=== PATIENT | female | born 1950 | race Caucasian/White ===

== ENCOUNTER 2018-07-18 12:40 | Day surgery (SDC) | payer OTHER ==
[~2018-07-18] VITALS: Ht 165.1 cm; Wt 94.2 kg
[~2018-07-18 12:40] MED LIST: CLINGEL; Diclofenac Pota50 MG; HYDACE5 PO; LEVSOD50; SIMV10; SPIHYD; VENL75ER
[2018-07-18] MEDS ORDERED: DESV50 PO (13:06)
[2018-07-18] MEDS ORDERED: LAMO100 PO (13:07)
== END 2018-07-18 14:27 | disposition home or self-care (01) ==
LOC: ORSCSDS 12:40
PROVIDERS: Internal Medicine Gastroenterology
PROC: 0DJD8ZZ Inspection of Lower Intestinal Tract, Via Natural or Artificial Opening Endoscopic (ICD-10-PCS; principal; 2018-07-18 14:30)
DX: Z12.11 Encounter for screening for malignant neoplasm of colon (principal); K57.30 Diverticulosis of large intestine without perforation or abscess without bleeding; K64.1 Second degree hemorrhoids; Z80.0 Family history of malignant neoplasm of digestive organs; I10 Essential (primary) hypertension; E03.9 Hypothyroidism, unspecified; E78.5 Hyperlipidemia, unspecified; F32.9 Major depressive disorder, single episode, unspecified; G47.33 Obstructive sleep apnea (adult) (pediatric); Z79.899 Other long term (current) drug therapy
CPT/HCPCS: J7120

== ENCOUNTER → 2018-08-23 | Outpatient (CLI) | payer OTHER ==
[~2018-08-23] MED LIST changes: +DESV50 PO; +LAMO100 PO
[2018-08-23 15:01] LABS: CHOL/HDL RATIO 3.9; Cholesterol 231 mg/dL (50-200); Free Thyroxine 1.08 ng/dL (0.70-1.60); HDL Cholesterol 59 mg/dL (>39); LDL/HDL RATIO 2.5; Low Density Lipoprotein Chol 149 mg/dL (0-110); Triglycerides 113 mg/dL (30-160); Very Low Density Lipoprot Chol 22 mg/dL (6-32)
[2018-08-24 11:08] LABS: Antinuclear Antibody Screen Negative (Negative)
== END | disposition home or self-care (01) ==
LOC: LAB 14:23 → LAB SHORT 14:23
PROVIDERS: Hospitalist
DX: E03.9 Hypothyroidism, unspecified (principal); E78.5 Hyperlipidemia, unspecified; M19.071 Primary osteoarthritis, right ankle and foot; R76.11 Nonspecific reaction to tuberculin skin test without active tuberculosis
CPT/HCPCS: 80061; 84439; 84443; 85651; 86038; 86430

== ENCOUNTER → 2023-04-25 | Outpatient (CLI) | payer OTHER ==
[~2023-04-25] MED LIST changes: +NYSTOP15 GM TOP; +SYNTHROID50 MC1 PO; +Simvastatin20 MG PO
[2023-04-27 10:46] LABS: Stool Occult Bld Immuno 1 Negative (NEGATIVE)
== END ==
LOC: LAB 12:30 → LAB SHORT 12:30
PROVIDERS: Registered Nurse
DX: Z12.11 Encounter for screening for malignant neoplasm of colon (principal); Z12.12 Encounter for screening for malignant neoplasm of rectum
CPT/HCPCS: G0328

== ENCOUNTER 2023-06-15 09:32 | Day surgery (SDC) | payer OTHER ==
[~2023-06-15] VITALS: Ht 152.4 cm; Wt 96.9 kg
[2023-06-15] VITALS (10 sets, daily range): BP systolic 112–139; BP diastolic 57–87
[~2023-06-15 09:32] MED LIST changes: +Acetaminophen650 M1 PO; +CLEOCIN T60 G1 TOP; -CLINGEL
--- NOTE | 2023-06-15 19:25 | NUR ---
SHIFT SUMMARY POD0 LTKA. AQUACEL AND MARTA WRAP IN PLACE WITH POLAR [place]. SPINAL DURING SURGERY PATIENT STILL NOT UP TO WALK. HAD ONE INCONT. VOID AND WAS CLEANED UP. PATIENT TOLERATES PAIN MEDS. CALLS APPROPRIATELY. AOX4. VSS.
[2023-06-16 00:17] VITALS: BP 127/84
[2023-06-16 04:58] VITALS: BP 132/80
[2023-06-16 05:04] LABS: BASOPHILS ABSOLUTE AUTO 0.01 K/mm3 (0.00-0.23); BASOPHILS PERCENT AUTO 0 % (0-2); EOSINOPHILS PERCENT AUTO 0 % (0-6); Hematocrit 34.6 % (33.0-51.0); Hemoglobin 11.2 g/dL (11.5-16.0); IMMATURE GRAN ABSOLUTE AUTO 0.03 K/mm3 (0.00-0.10); IMMATURE GRAN PERCENT AUTO 0 % (0-1); LYMPHOCYTES ABSOLUTE AUTO 0.86 K/mm3 (0.84-5.20); LYMPHOCYTES PERCENT AUTO 7 % (21-46); MONOCYTES ABSOLUTE AUTO 0.95 K/mm3 (0.16-1.47); MONOCYTES PERCENT AUTO 8 % (4-13); Mean Corpuscular HGB 29.1 pg (26.0-34.0); Mean Corpuscular HGB Conc 32.4 g/dL (31.5-36.5); Mean Corpuscular Volume 90 fL (80-100); Mean Platelet Volume 9.4 fL (9.1-12.4); NEUTROPHILS ABSOLUTE AUTO 10.02 K/mm3 (1.96-9.15); NEUTROPHILS PERCENT AUTO 84 % (41-73); Platelet Count 228 K/mm3 (150-400); RDW Coefficient Variation 12.5 % (11.7-14.2); RDW Standard Deviation 40.9 fL (35.1-46.3); Red Blood Cell Count 3.85 M/mm3 (3.80-5.20); White Blood Cell Count 11.87 K/mm3 (4.00-11.30)
[2023-06-16 05:39] LABS: Bun/Creatinine Ratio 33.5 (12.0-20.0); Calcium, Blood 9.5 mg/dL (8.5-10.1); Creatinine, Blood 0.99 mg/dL (0.40-1.00); Magnesium, Blood 2.4 mg/dL (1.6-2.4); Potassium, Blood 4.8 mmol/L (3.5-5.5)
[2023-06-16 07:09] VITALS: BP 106/92
[2023-06-16 07:10] VITALS: BP 131/79
--- NOTE | 2023-06-16 07:35 | NUR ---
SHIFT SUMMARY NOC. PT A/O X4. PT'S LEFT KNEE AQUACEL IS C/D/I. PT AMBULATED TO THE BR, IS VOIDING, AND TOLERATING PO INTAKE.PT MEDICATED FOR PAIN WITH RELIEF OF SX. PT RESTED WITH EYES CLOSED, CPAP ON AND CALL LIGHT IN REACH.
[2023-06-16] MEDS ORDERED: ASPI81CH PO (08:55)
[2023-06-16] MEDS ORDERED: Percocet 5-3251 EACH PO (08:55)
--- NOTE | 2023-06-16 12:18 | NUR ---
DISCHARGE NOTE: PATIENT AND PATIENTS SON WERE EDUCATED ON DISCHARGE INSTRUCTIONS. SON HAS THE HARD PERSCRIPTIONS. AFTER EDUCATION BOTH THE SON AND PATIENT HAD NO FURTHER QUESTIONS AT THIS TIME. IV WAS TAKEN OUT AND WNL. PAIN IS MANAGED WITH PO MEDS. HER LEFT KNEE HAS AN AQUACEL THAT IS C/D/I. PATIENT DENIES NUMBNESS OR TINGLING ON ALL EXTREMITIES. SHE IS A SBA WITH FWW AND GAIT BELT. SHE IS TOLERATING PO INTAKE AND IS VOIDING. PATIENT IS DRESSED AND HAS ALL PERSONAL ITEMS IN THE ROOM GATHERED. PATIENT IS FINISHING UP LUNCH AND THEN IS BEING WHEELCHAIRED OUT WHEN READY TO HER SONS CAR TO BE TAKEN HOME.
--- NOTE | 2023-06-16 12:44 | NUR ---
PATIENT WAS JUST WHEELCHAIRED OUT TO HER SONS CAR TO BE TAKEN HOME. SHE HAS ALL OF HER PERSONAL BELONGINGS WITH HER.
== END 2023-06-16 12:44 | disposition home or self-care (01) ==
LOC: SURS 09:32 → ORSCMMR 09:32 → ORD 10:00 → ORSCMMR 11:00 → ORD 11:00 → SURS 15:41 → ORSCMMR 06-16 12:44
PROVIDERS: Orthopaedic Surgery
PROC: 0SRD0JA Replacement of Left Knee Joint with Synthetic Substitute, Uncemented, Open Approach (ICD-10-PCS; principal; 2023-06-15 11:00)
DX: M17.12 Unilateral primary osteoarthritis, left knee (principal); E66.01 Morbid (severe) obesity due to excess calories; Z68.41 Body mass index [BMI] 40.0-44.9, adult; E78.5 Hyperlipidemia, unspecified; G47.33 Obstructive sleep apnea (adult) (pediatric); F41.8 Other specified anxiety disorders; E03.9 Hypothyroidism, unspecified; Z79.899 Other long term (current) drug therapy
CPT/HCPCS: 36415; 73560-LT; 80048; 83735; 85025; 97116; 97161; 97530; A9270; C1713; C1776; J0171; J0690; J0735; J1100; J1885; J2371; J2405; J2704; J2795; J3010; J7120

== ENCOUNTER 2025-05-04 10:50 | Day surgery (SDC) | payer OTHER ==
[~2025-05-04] VITALS: Ht 152.4 cm; Wt 91.3 kg
[~2025-05-04 10:50] MED LIST changes: +ASPI81CH PO; +Bupivacaine 0.5% W/EPI 1:200000 SDV 30 ML Vial ONE; +Percocet 5-3251 EACH PO
[2025-05-04] MEDS ORDERED: CeFAZolin Sodium 2,000 MG VIAL ONE (11:11)
--- NOTE | 2025-05-04 13:19 | NUR ---
05/04/25 3727 Joann Bergeron PT APPEARED TO BE SLEEPING UPON ENTERING ROOM. LIGHT SNORING HEARD. AROUSES EASILY. BED ADJUSTED FOR COMFORT. DENIES ANY NEEDS AT THIS TIME. DENIES NEED FOR ANOTHER BLANKET AT THIS TIME. CALL LIGHT REMAINS IN REACH.
[2025-05-04] MEDS ORDERED: Ropivacaine 0.5% HCL/PF 5 MG/ML 30ML Vial ONE (13:50)
[2025-05-04] MEDS ORDERED: Midazolam HCl 1MG / ML 2ML Vial ONE ×2 (13:51→16:18)
[2025-05-04] MEDS ORDERED: FentaNYL Citrate 50 MCG/ML 2 ML Injection ONE ×2 (14:02→15:59)
[2025-05-04] MEDS ORDERED: Rocuronium Bromide 10 MG/ML 5ML Injection IV ONE (14:03)
[2025-05-04] MEDS ORDERED: Phenylephrine HCl 100 MCG/ML-NS 10MLSYR (1MG/10ML) ONE (14:13)
[2025-05-04] MEDS ORDERED: Ondansetron HCl 2 MG / ML 2ML Vial ONE (14:16)
[2025-05-04] MEDS ORDERED: Dexamethasone Sod Phos 10 MG/ML 1ML VIAL ONE ×2 (14:16→16:16)
--- NOTE | 2025-05-04 16:09 | NUR ---
05/04/25 0944 PIO GALLAGHER PT WAS PLACED ON OXYGEN 2L VIA N/C. PT WAS DESAT. PT CRYING AND MOANING. THATS THAT HER PAIN IS 6-7/10. I GAVE HER 50MCG OF FENTANYL FOR PAIN. SHE CONTINUES TO MOAN IN PAIN. ELEVATED LEG WITH 2 PILLOWS. SHE STATES HELPS A LITTLE.
[2025-05-04 17:02] VITALS: BP 115/90
--- NOTE | 2025-05-04 17:05 | NUR ---
05/04/25 1705 PIO GALLAGHER KEEPING PT IN BED AT THIS TIME HER LEG IS ELEVATED ON PILLOWS. DRINKING FLUIDS.
== END 2025-05-04 17:50 | disposition home or self-care (01) ==
LOC: ORSCSDS 10:50
PROVIDERS: Podiatrist Foot & Ankle Surgery
PROC: 0SGF04Z Fusion of Right Ankle Joint with Internal Fixation Device, Open Approach (ICD-10-PCS; principal; 2025-05-04 12:15)
PROC: 0SGH04Z Fusion of Right Tarsal Joint with Internal Fixation Device, Open Approach (ICD-10-PCS; principal; 2025-05-04 12:15)
DX: M19.071 Primary osteoarthritis, right ankle and foot (principal); M21.071 Valgus deformity, not elsewhere classified, right ankle; I10 Essential (primary) hypertension; E03.9 Hypothyroidism, unspecified; G47.33 Obstructive sleep apnea (adult) (pediatric); E66.9 Obesity, unspecified; Z68.39 Body mass index [BMI] 39.0-39.9, adult; Z79.899 Other long term (current) drug therapy
CPT/HCPCS: A6253; C1713; C1769; C1889; J0690; J1100; J2250; J2371; J2405; J2704; J2795; J3010; J7120